=== PATIENT | female | born 1980 | race Hispanic/Latino ===

== ENCOUNTER 2017-01-13 01:38 | Inpatient (IN) | payer OTHER ==
[2017-01-13 01:59] VITALS: BMI 27.4
[2017-01-13] MEDS ORDERED: Oxytocin 30 units/LR 500ML 30 U/500 ML BAG IV ONE ×2 (02:04→06:25)
[2017-01-13] MEDS: Lactated Ringer's 1,000 ML IV SCH ×2 (02:10→03:10)
--- NOTE | 2017-01-13 02:14 | OBADHP ---
Datetime: 01/13/2017 01:58 Admit Comment, IP Provider: 36yo IUP at 39w6d c/o CTX pain since 23:00pm. All day irregular ctx but worse inat night. No SROM; noVB; +FM PNC: CP Dr Terry chart rev'd [place] placenta AMA PMH: RA 2013 PSH: denies NKA PSoH: denies [place] ETHOH drugs POBGYNH: x 1 A: IUP at 39w active labor AMA poss LGA PLAN: admit; IVF; LGA, pain management, labor, delivery and discussed. She understands and still wants la bor/. Anesthesia called Pelvic Type - PN: Adequate Extremities - PN: Normal Abdomen - PN: Normal Back - PN: Not Done Breast - PN: Normal Lungs - PN: Normal Heart - PN: Normal Thyroid - PN: Normal Neurologic - PN: Normal HEENT - PN: Normal General - PN: Normal Presentation-Admit: Vertex FHR - Baseline A Provider: 140 Membranes, Provider: Intact Contraction Comments Provider: + Comments, ACOG Physical Exam: ROS: General: no fatigue; no weakness HENT: No LOGAN; no visual dist CV: no CP; no palpitatoins Resp: no cough; no SOB GI: no N/V/D : no F/U/D MS: no joint pain Pool Provider: Negative IP Hx Assessment: The History has been Reviewed and is Current Vital Signs Provider: Reviewed; Within Normal Limits IP Chief Complaint: Uterine contractions NICHD Variability Prov Fetus A: Moderate 6-25bpm NICHD Accel Fetus A IP Provider: 15X15 FHR Category Provider Fetus A: Category I Dilatation, Provider: 5-6 Genitourinary Exam: Normal DTRs - PN: Normal EGA AdmitDate IP: 39.6 IP Adm Impression: Term, intrauterine ; Active labor IP Admit Plan: Admit to unit; Initiate labor protocol
[2017-01-13] MEDS ORDERED: Oxytocin 30 UNITS in Sodium Chloride 0.9% 500 ML IV ONE (02:30)
[2017-01-13 02:40] LABS: BASO # 0.1 K/uL (0.0-0.2); EOS # 0.2 K/uL (0.0-0.7); EOS % 1.3 % (0.0-4.0); HEMATOCRIT 36.4 % (34.0-47.0); LYMPH # 3.3 K/uL (1.0-4.3); LYMPH % 22.3 % (20.0-40.0); MEAN CELL VOLUME 92.2 fl (81.0-99.0); MEAN CORPUSCULAR HEMOGLOBIN 31.8 pg (27.0-31.0); MEAN CORPUSCULAR HGB CONC 34.4 g/dL (33.0-37.0); MEAN PLATELET VOLUME 9.1 fl (7.2-11.7); MONO # 1.1 K/uL (0.0-0.8); MONO % 7.5 % (0.0-10.0); NEUT # 10.1 K/uL (1.8-7.0); NEUT % 67.9 % (50.0-75.0); NRBC % 0.1 % (0.0-0.0); RED CELL DISTRIBUTION WIDTH 13.4 % (11.5-14.5); WHITE BLOOD COUNT 14.8 K/uL (4.8-10.8)
[2017-01-13] MEDS ORDERED: Fentanyl/Bupivacaine HCl 250 ML EPI ONE (02:47)
[2017-01-13] MEDS ORDERED: Lactated Ringer's 1,000 ML IV SCH (04:00)
[2017-01-13] MEDS ORDERED: Sodium Chloride 0.9% 1,000 ML IV SCH (05:00)
[2017-01-13] MEDS ORDERED: ceFAZolin 1 GM in Sodium Chloride 0.9% 100 ML IVPB ONE (05:09)
--- NOTE | 2017-01-13 05:17 | OBPN ---
Datetime: 01/13/2017 05:15 IP Progress Impression: Non-reassuring heart rate IP Informed Consent Obtain: Section Delivery; Risks, Benefits and Alternatives Discussed IP Progress Note Comment: FH<100''s 5m SVE fully unabe to recovre...C/S...informed consent obtained Datetime: 01/13/2017 04:58 IP Procedures: Intrauterine Pressure Catheter; Amnio Infusion IP Progress Plan: Continue present management Pool Provider: Positive Membranes, Provider: Ruptured Amniotic Fluid Color, Provider: Clear FHR - Baseline A Provider: 130 Presentation-Admit: Vertex NICHD Accel Fetus A IP Provider: 15X15 FHR Category Provider Fetus A: Category II NICHD Variability Prov Fetus A: Moderate 6-25bpm Dilatation, Provider: 10 Effacement, Provider: 100 Station, Provider: 0 Datetime: 01/13/2017 01:58 Contraction Comments Provider: + Vital Signs Provider: Reviewed; Within Normal Limits
[2017-01-13] MEDS ORDERED: Propofol 10 mg/ml Inj (20 ML) ONE (05:25)
[2017-01-13] MEDS ORDERED: Midazolam 2 MG/2 ML VIAL ONE (05:25)
[2017-01-13] MEDS ORDERED: Morphine 1 mg/ml preservative-free Inj(Duramorph) ONE (05:35)
[2017-01-13] MEDS ORDERED: Oxycodone/Acetaminophen 5/325 mg Tab PO PRN (06:19)
[2017-01-13] MEDS ORDERED: Lidocaine 2% PF (10 ml) Amp ONE (06:29)
--- NOTE | 2017-01-13 08:59 | OBDS ---
DELIVERY PERSONNEL Delivery Doctor: Veronica Roa DO Scrub Nurse: Risa Vincent Immigration Services Officer: Latricia Abreu RN Anesthesiologist: Sage Skelton MD Resident: paolo mckeon ob resident MATERNAL INFORMATION Delivery Anesthesia: Epidural Medications in Delivery: pitocin Estimated Blood Loss (ml): 700 Placenta Cultured: No Maternal Complications: None RN Comments: emergency c/s for aubrey cardia , pt tolerated the procedure well , jaylyn , present in or during c/s , supportive Provider Comments: Pre Op Dx: bradycardia Post Op Dx: same Procedure: Primary LTCS via Pfannenstiel incision Surgeon Dr Roa Asst Dr Jo PGY1 Anest: Dr Skelton Anesth: epidural; IV sedation Findings: Live [facility] clear AF Placenta delivreed intact manually Ovaries and tubes WNL grossly Repair of uterine extension EBL 800cc She remained stable throughout procedure LABOR SUMMARY EDC: 01/14/2017 00:00 No. Babies in Womb: 1 LABOR INFORMATION Reason for Induction: Not Applicable Onset of Labor: 01/12/2017 23:30 Complete Dilatation: 01/13/2017 04:35 Group B Beta Strep: Negative Antibiotics Time of Last Dose: 0520 ancef 1 gram Steroids Given: None Reason Steroids Not Administered: Not Applicable MEMBRANES Membranes Rupture Method: Spontaneous Rupture of Membranes: 01/13/2017 03:26 Length of Rupture (hrs): 2.05 Amniotic Fluid Color: Clear Amniotic Fluid Amount: Large Amniotic Fluid Odor: Normal STAGES OF LABOR Stage 1 hrs: 5 Stage 1 min: 5 Stage 2 hrs: 0 Stage 2 min: 54 Stage 3 hrs: 0 Stage 3 min: 0 Total Time in Labor hrs: 5 Total Time in Labor min: 59 VAGINAL DELIVERY Episiotomy: None Laceration Type: None CSECTION DELIVERY Primary Indication: Other Other Primary Indication: bradycardia CSection Urgency: Emergency CSection Incidence: Primary Labor: Labor Elective: Nonelective CSection Incision: Lower Uterine Transverse BABY A INFORMATION Infant Delivery Date/Time: 01/13/2017 05:29 Method of Delivery: Born in Route : No : N/A Forceps: N/A Vacuum Extraction: N/A Shoulder Dystocia : No SHOULDER DYSTOCIA BABY A Delivery Date/Time: 01/13/2017 05:29 PRESENTATION/POSITION BABY A Presentation: Cephalic Cephalic Presentation: Vertex Vertex Position: Left Occipital Anterior Breech Presentation: N/A PLACENTA INFORMATION BABY A Placenta Delivery Time : 01/13/2017 05:29 Placenta Method of Delivery: Manual Removal Placenta Status: Delivered SCORES BABY A Heart Rate 1 min: >100 bpm Resp Effort 1 min: Good Cry Reflex Irritability 1 min: Cough or Sneeze or Pulls Away Muscle Tone 1 min: Active Motion Color 1 min: Body [place], Extremities Blue SCORE 1 MIN: 9 Heart Rate 5 min: >100 bpm Resp Effort 5 min: Good Cry Reflex Irritability 5 min: Cough or Sneeze or Pulls Away Muscle Tone 5 min: Active Motion Color 5 min: Body [place], Extremities Blue SCORE 5 MIN: 9 INFANT INFORMATION BABY A Gestational Age at Delivery: 39 6/7 Gestational Status: Term Outcome : Liveborn Condition : Stable Infant Sex: Male IDENTIFICATION/MEDS BABY A ID Band Number: [id number] ID Band Location: Left Leg; Left Arm Vitamin K Given : Aquamephyton 1 mg IM Erythromycin Given: Given Both Eyes WEIGHT/LENGTH BABY A Infant Birthweight (gms): 3715 Infant Weight (lb): 8 Infant Weight (oz): 3 Infant Length Inches: 20.00 Infant Length cms: 50.8 CORD INFORMATION BABY A No. Cord Vessels: 3 Nuchal Cord : N/A Cord pH Baby Venous: 7.09 Cord Blood Taken: Yes Suction: Mouth; Nose ASSESSMENT BABY A Complications: None Physical Findings at Delivery: Within Normal Limits Respirations: Appears Normal Patient Relations Specialist/ALS Called : No Care By: dr matias/beronica nelson rnc ,[facility] nursery rn Transferred To: [facility] RESUSCITATION BABY A Resuscitation Effort: Tactile Stimulation
[2017-01-13 10:39] LABS: HEMATOCRIT 26.6 % (34.0-47.0); MEAN CELL VOLUME 92.4 fl (81.0-99.0); MEAN CORPUSCULAR HEMOGLOBIN 31.6 pg (27.0-31.0); MEAN CORPUSCULAR HGB CONC 34.2 g/dL (33.0-37.0); RED CELL DISTRIBUTION WIDTH 13.1 % (11.5-14.5); WHITE BLOOD COUNT 18.3 K/uL (4.8-10.8)
[2017-01-13] MEDS: Oxycodone/Acetaminophen 5/325 mg Tab PO PRN (20:36)
[2017-01-14 06:39] LABS: HEMATOCRIT 26.5 % (34.0-47.0); MEAN CELL VOLUME 92.7 fl (81.0-99.0); MEAN CORPUSCULAR HEMOGLOBIN 32.1 pg (27.0-31.0); MEAN CORPUSCULAR HGB CONC 34.6 g/dL (33.0-37.0); RED CELL DISTRIBUTION WIDTH 13.8 % (11.5-14.5); WHITE BLOOD COUNT 17.3 K/uL (4.8-10.8)
--- NOTE | 2017-01-14 11:04 | OBPPN ---
Datetime: 01/14/2017 11:00 PP Pain Prov: Within normal limits PP Nausea Prov: Denies PP Flatus Prov: No PP Breasts Prov: Normal PP Heart Prov: Normal PP Lungs Prov: Normal PP Abdomen/Uterus Prov: Normal PP Lochia Prov: Normal PP Vulva/Perineum Prov: Normal PP CVA Tenderness Prov: Normal PP Extremities Prov: Normal PP Comments Phys Exam Prov: Fundus firm under umilicus PP Impression Prov: Normal progression PP Plan Prov: Continue present management PP Progress Note Prov: Patient denies CP, no SOB, no N/V, tolerating PO diet, ambulating/voiding wel l, abdominal pain tolerable with meds, mild lochia, no flatus A/P POD #1 1. Reg diet 2. Percocet/Motrin prn pain 3. Colace and Mylicon 4. Encourage ambulation/ IP PP Procedures: None Vital Signs Provider PP: Reviewed; Within Normal Limits
[2017-01-14] MEDS: Simethicone 80 mg Chewtab PO PRN ×2 (11:38→16:14)
[2017-01-14] MEDS ORDERED: Lansinoh for Breast Feeding Mothers TP ONE (20:13)
[2017-01-14] MEDS: Oxycodone/Acetaminophen 5/325 mg Tab PO PRN (20:44)
--- NOTE | 2017-01-14 23:37 | OP ---
PROCEDURE DATE: 01/13/2017 PREOPERATIVE DIAGNOSIS: bradycardia. POSTOPERATIVE DIAGNOSIS: bradycardia. PROCEDURE: Primary low transverse section via Pfannenstiel incision. SURGEON: Edmund Roa DO PRODUCTION POTTER: Dr. Jo, PGY-1. ANESTHESIOLOGIST: Dr. Skelton. TYPE OF ANESTHESIA: Epidural and IV sedation. ESTIMATED BLOOD LOSS: 800 mL. OPERATIVE FINDINGS: Live male delivered from cephalic presentation. Clear amniotic fluid noted. Placenta was delivered and intact manually. Ovaries and tubes appeared to be within normal limits grossly. Repair of uterine extension. She remained hemodynamically stable throughout the procedure. DESCRIPTION OF PROCEDURE: Poonam was brought to the operating room. Compression boots were placed on both lower extremities. A catheter was already in place in the bladder and draining blood-tinged urine. She was placed in the supine position and draped and prepped in the usual sterile manner. Adequate anesthesia was obtained at the Pfannenstiel site and hence, the Pfannenstiel incision was made using a scalpel. This incision was then taken down to underlying fascia using second scalpel. Fascia was nicked in the midline and extended bilaterally using curved Bermudez scissors. Inferior aspect of the fascia was grasped using two Neetu clamps, tented up, and the rectus muscle was both bluntly and sharply dissected using electrocautery. Same was done with the superior aspect of the fascia in the midline. There was noted to be an opening and able to visualize the peritoneal cavity. This was tented up using two Lindsey clamps and then incised superiorly and this incision was then extended superiorly and inferiorly with direct visualization of the bladder and intestines. A bladder blade was then inserted. The bladder flap was created by incising the peritoneum on the uterus above the bladder. This incision was then extended bilaterally using Metzenbaum scissors. A bladder flap was created digitally. Bladder blade was then inserted behind the bladder flap. A low transverse incision was made using a scalpel. Upon entering the uterus, clear fluid was noted. This incision was then extended using bandage scissors. Thereafter, the infant's head was delivered as atraumatically as possible. It was bulb suctioned nasopharyngeally. Infant was crying spontaneously upon delivery of the remainder of the 's body. Cord was clamped and cut. was handed to the presser automatic in attendance. score of 9 and 9 given at one and five minutes respectively. Cord pH and cord bloods were obtained. Uterus was then exteriorized, cleared of debris and clots. Good contracted uterus was noted given IV Pitocin. Lower uterine segment was identified and grasped using T-clamps and Allis clamps. Right-sided lower uterine extension was noted. This was closed first using 0 Vicryl suture in an interlocking fashion. Bladder was identified prior to start of closure. Thereafter, 0 Vicryl suture was then used to close the first layer of the uterus in an interlocking fashion, second layer of the uterus was closed using 0 Vicryl suture imbricating the first layer with good hemostasis. Good contraction of the uterus was noted. Ovaries and tubes appeared to be within normal limits. Posterior cul-de-sac was cleared of debris and clots. The uterus was placed back into peritoneal cavity. Irrigation was performed. The incision on the uterus was noted to have good hemostasis. All equipments were removed and accounted for. A 0 Vicryl suture was used to approximate the peritoneum. A 0 Vicryl suture was used to approximate the rectus muscle x3 in an intermittent fashion. Hemostasis was assured. A 0 Vicryl suture was used to approximate the fascial layer in a running fashion. Irrigation was performed. Hemostasis was assured at the level of subcuticular layer. A 3-0 Vicryl suture was used to approximate the skin. Dermabond, Steri-Strips, and pressure bandage were applied. All equipments, sponges, and needles accounted for. CBC is scheduled for 12 p.m. as well as tomorrow morning. Edmund Roa DO
--- NOTE | 2017-01-15 09:51 | OBPPN ---
Datetime: 01/15/2017 09:47 PP Pain Prov: Within normal limits PP Nausea Prov: Denies PP Flatus Prov: Yes PP BM Prov: No PP Breasts Prov: Normal PP Heart Prov: Normal PP Lungs Prov: Normal PP Abdomen/Uterus Prov: Normal PP Lochia Prov: Normal PP Vulva/Perineum Prov: Normal PP CVA Tenderness Prov: Normal PP Extremities Prov: Normal PP C/S Incision Prov: Normal PP Impression Prov: Normal progression PP Plan Prov: Continue present management PP Progress Note Prov: She feels fine; ambuulating witout difficulty H/H 11/28 A: S/P C/S day 2 Anemia asymtomatic PLAN: anticpate discharge in AM Vital Signs Provider PP: Reviewed; Within Normal Limits
[2017-01-15] MEDS: Simethicone 80 mg Chewtab PO PRN (21:07)
--- NOTE | 2017-01-16 15:52 | OBPPN ---
Datetime: 01/16/2017 15:49 PP Pain Prov: Within normal limits PP Nausea Prov: Denies PP Flatus Prov: Yes PP Breasts Prov: Not Done PP Heart Prov: Normal PP Lungs Prov: Normal PP Abdomen/Uterus Prov: Normal PP Lochia Prov: Not Done PP Vulva/Perineum Prov: Not Done PP CVA Tenderness Prov: Normal PP Extremities Prov: Normal PP Impression Prov: Normal progression PP Plan Prov: Discharge PP Progress Note Prov: Doing well d/c home f/u with [facility] 4-6 weeks Vital Signs Provider PP: Reviewed
--- NOTE | 2017-01-16 15:52 | OBDCSUM ---
Datetime: 01/16/2017 15:04 Discharged to, Provider: Home Follow up at, Provider: Deborah Disch Instr Activity: Normal activity; May be up for meals; May Shower Disch Instr Diet: Regular Discharge Instructions, Provider: Routine instructions given Discharge Diagnosis, Provider: Term Delivered Discharge Time: 01/16/2017 19:30 Follow up in weeks, Provider: one week Disch Referrals: None Contraception discussed, Prov: Yes Disch Activity Restrictions: No lifting; Nothing in vagina - [place], tampons, douche Discharge Comment, Provider: Doing well d/c home f/u with [facility] 4-6 weeks Contraception after Delivery: Undecided
[2017-01-16 23:50] VITALS: BP 124/82; PULSE 81; RESP 20; TEMP 98.7; O2SAT 98
== END 2017-01-16 19:40 | disposition home or self-care (01) | DRG 766 ==
LOC: H.EROB2 01:38 → H.L&D 02:03 → H.OB/GYN 09:42
PROVIDERS: ADMIT Obstetrics & Gynecology; ATTEND Obstetrics & Gynecology
PROC: 10D00Z1 Extraction of Products of Conception, Low, Open Approach (ICD-10-PCS; principal; 2017-01-13)
PROC: 4A1HXCZ Monitoring of Products of Conception, Cardiac Rate, External Approach (ICD-10-PCS; 2017-01-13)
DX: O76 Abnormality in fetal heart rate and rhythm complicating labor and delivery (principal); Z37.0 Single live birth; Z3A.39 39 weeks gestation of pregnancy